=== PATIENT | female | born 1975 | race Asian ===

== ENCOUNTER 2016-08-03 11:05 | Emergency (ER) | payer SELFPAY ==
[2016-08-03 11:23] VITALS: BP 105/76; PULSE 74; RESP 16; TEMP 99; O2SAT 95
[2016-08-03] MEDS ORDERED: PROPARACAINE 0.5% 15 ML OPHT DROP ONE (11:25)
[2016-08-03] MEDS ORDERED: FLUORESCEIN SODIUM 1 MG STRIP OP ONE (11:25)
--- NOTE | 2016-08-03 11:43 | UCPHY ---
H & P Time Seen by Provider: 08/03/16 11:42 Patient Type: New HPI/ROS: Chief complaint. Foreign body sensation eye HPI. 40-year-old female was gardening yesterday without gloves. She rubbed her eye. Today the white part of her eye is quite swollen and appears to be full of fluid. No change in her vision. It is irritated. No drainage. She does have problems with allergies and frequently does use antihistamines or decongestants. She is otherwise not ill and no upper respiratory symptoms ROS Constitutional. no fever/chills, no weakness Eyes. No problem with vision but the white part of the eye is ENT. no sore throat, no nasal drainage Cardiovascular. no chest pain Respiratory. no shortness of breath, no cough Abdominal. no abdominal pain, no nausea/vomiting, no diarrhea . no problems urinating MS. no calf pain/swelling, no neck/back pain, no joint pain Skin. no rash Lymph. no swollen glands Neuro. no headache, no dizziness, no difficulty walking or with speech Past Medical/Surgical History: Healthy without previous eye problems other than wearing glasses Social History: , nonsmoker, no alcohol Smoking Status: Never smoked Physical Exam: General Appearance: Alert well-developed female mild distress vital signs are stable Eyes: Pupils equal round reactive. There is no injection. The sclera is edematous especially on the lateral aspect as well as inferior aspect of the eye. No obvious foreign body ENT, Mouth: Mucous membranes are moist. Respiratory: There are no retractions, lungs are clear to auscultation. Cardiovascular: Regular rate and rhythm. Gastrointestinal: Abdomen is soft and nontender, no masses, bowel sounds normal. Neurological: Awake and alert, sensory and motor exams grossly normal. Skin: Warm and dry, no rashes. Musculoskeletal: Neck is supple nontender. Extremities symmetrical, full range of motion. Psychiatric: Patient is oriented X 3, there is no agitation. Constitutional: Initial Vital Signs Temperature (C) 37.2 C 08/03/16 11:21 Heart Rate 74 08/03/16 11:21 Respiratory Rate 16 08/03/16 11:21 Blood Pressure 105/76 08/03/16 11:21 O2 Sat (%) 95 08/03/16 11:21 O2 Delivery Mode Room Air Allergies/Adverse Reactions: No Known Allergies Allergy (Unverified 08/03/16 11:21) Home Medications: Medication Instructions Recorded Multivitamin [Multi-Vitamin Daily] 08/03/16 Naphazoline HCl/Phenir Mal [Eye 1 drop LEFTEYE QID #1 08/03/16 Allergy Relief Drops] Medical Decision Making Procedures: Alcaine and fluprescein are instilled in the left eye. The eye is examined under slit lamp. No evidence for foreign body or globe perforation. Significant scleral edema. There is no abrasion or ulceration ED Course/Re-evaluation: Patient and I discussed findings on exam treatment plan, criteria for return, importance of follow-up further evaluation. She expresses understanding and agreement Differential Diagnosis: I considered corneal abrasion, foreign body. This appears to be allergic reaction with scleral edema Departure - Departure Disposition: Home, Routine, Self-Care Clinical Impression: Conjunctival edema of left eye Condition: Good Instructions: Conjunctivitis (ED) Additional Instructions: May use oral antihistamines and decongestants. Eyedrops using 1 drop 4 times daily to the left eye for the next 2 days. Cool compress to left eye. Return for worsening symptoms. Recheck by Ophthalmology if not improved in 2-3 days Referrals: NONE *PRIMARY CARE P,. [Primary Care Provider] - As per Instructions Victoriano Musa MD [Medical Doctor] - As per Instructions Prescriptions: Naphazoline HCl/Phenir Mal [Eye Allergy Relief Drops] 1 drop LEFTEYE QID #1 - PQRS PQRS Measurement: 134: Depression screening and followup, PRIME -PHQ2 (12 years and older) Over the last 2 weeks, how often have you been bothered by any of the following problems? 1. Feeling down, depressed, or hopeless? 2. Little interest or pleasure in doing things? Patient answered no to both 1 and 2 130: Documentation of medications. Reviewed all patient medications, doses, route and frequency. 226: Do you smoke? No.
== END 2016-08-03 12:10 | disposition home or self-care (01) ==
LOC: CED 11:05
DX: H11.422 Conjunctival edema, left eye (principal)
CPT/HCPCS: 99203-PO; G0463-PO